=== PATIENT | male | born 1975 | race Caucasian/White ===

== ENCOUNTER 2021-11-17 15:15 | Emergency (ER) | payer OTHER ==
[2021-11-17 15:58] LABS: #Basophils 0.1 thou/uL (0.0-0.2); #Eosinphils 0.1 thou/uL (0.0-0.7); #Lymphocytes 1.8 thou/uL (1.20-3.40); #Monocytes 0.4 thou/uL (0.11-0.59); #Neutrophils 4.4 thou/uL (1.40-6.50); %Basophils 0.7 % (0.0-1.0); %Eosinophils 0.8 % (0.0-10.0); %Lymphocytes 27.1 % (21.0-51.0); %Monocytes 5.9 % (0.0-10.0); %Neutrophils 65.4 % (42.0-75.0); Hemoglobin 17.3 g/dL (14.0-18.0); Mean Corpuscular Hemoglobin 33.2 pg (27.0-31.0); Mean Corpuscular Volume 94.8 fL (78.0-98.0); Mean Platelet Volume 7.5 fL (7.4-10.4); Platelet Count 306 thou/uL (130-400); RBC Distribution Width 13.2 % (11.5-14.5); Red Blood Cell (RBC) Count 5.23 mill/uL (4.70-6.10); White Blood Cell (WBC) Count 6.8 thou/uL (4.8-10.8)
[2021-11-17 16:17] LABS: ALT (SGPT) 37 U/L (8-55); AST (SGOT) 20 U/L (5-34); Albumin 4.4 g/dL (3.5-5.0); Alkaline Phosphatase 65 U/L (40-110); Anion Gap 14 mmol/L (10-20); BUN (Urea Nitrogen) 16 mg/dL (8.9-20.6); Bilirubin, Total 1.1 mg/dL (0.2-1.2); Calc. Creatinine Clearance 0 mL/min (70-130); Calcium 9.7 mg/dL (7.8-10.44); Carbon Dioxide 24 mmol/L (22-29); Chloride 104 mmol/L (98-107); Estimated GFR 69; Globulin 3.5 g/dL (2.4-3.5); Glucose 90 mg/dL (70-105); Lipase 24 U/L (8-78); Potassium 4.3 mmol/L (3.5-5.1); Protein, Total 7.9 g/dL (6.0-8.3); Sodium 138 mmol/L (136-145)
== END 2021-11-17 17:13 | disposition home or self-care (01) ==
LOC: ERS 15:15
DX: R07.2 Precordial pain (principal); E78.5 Hyperlipidemia, unspecified; F17.220 Nicotine dependence, chewing tobacco, uncomplicated
CPT/HCPCS: 36415; 71045; 80053; 83690; 84484; 85025; 93005; 94760

== ENCOUNTER 2023-09-20 07:53 | Observation (INO) | payer BC, OTHER ==
[2023-09-20] MEDS ORDERED: Nitroglycerin 2% Ointment 1 INCH/1 GM Packet ONE (08:10)
[2023-09-20] MEDS ORDERED: Aspirin Chewable 81 MG TAB ONE (08:10)
[2023-09-20 08:25] LABS: #Basophils 0.03 10x3/uL (0.0-0.2); %Basophils 0.4 % (0.0-1.0); %Lymphocytes 29.9 % (21.0-51.0); %Monocytes 7.7 % (0.0-10.0); %Neutrophils 60.5 % (42.0-75.0); Hematocrit 48.5 % (42.0-52.0); Hemoglobin 17.4 g/dL (14.0-18.0); Mean Corpuscular HGB CONC 35.9 g/dL (32.0-36.0); Mean Corpuscular Hemoglobin 32.7 pg (27.0-31.0); Mean Corpuscular Volume 91.2 fL (78.0-98.0); Mean Platelet Volume 9.3 fL (7.4-10.4); Platelet Count 291 10x3/uL (130-400); RBC Distribution Width 13.2 % (11.5-14.5); Red Blood Cell (RBC) Count 5.32 mill/uL (4.70-6.10)
[2023-09-20 08:38] LABS: ALT (SGPT) 44 U/L (8-55); AST (SGOT) 29 U/L (5-34); Albumin 4.1 g/dL (3.5-5.0); Alkaline Phosphatase 67 U/L (40-110); Anion Gap 17 mmol/L (10-20); BUN (Urea Nitrogen) 15 mg/dL (8.9-20.6); Bilirubin, Total 0.8 mg/dL (0.2-1.2); Calc. Creatinine Clearance 0 mL/min (70-130); Calcium 9.4 mg/dL (7.8-10.44); Carbon Dioxide 25 mmol/L (22-29); Chloride 101 mmol/L (98-107); Estimated GFR 71; Globulin 3.4 g/dL (2.4-3.5); Glucose 89 mg/dL (70-105); Potassium 3.6 mmol/L (3.5-5.1); Protein, Total 7.5 g/dL (6.0-8.3); Sodium 139 mmol/L (136-145)
[2023-09-20 08:43] LABS: Troponin I Less than 0.010 ng/mL (< 0.028)
[2023-09-20] MEDS ORDERED: Nitroglycerin 0.4 MG TAB (25 Tab Bottle) SL PRN (12:10)
[2023-09-20] MEDS ORDERED: Ondansetron PF 4 MG/2 ML Vial IVP PRN (12:10)
[2023-09-20] MEDS ORDERED: Ondansetron ODT 4 MG TAB PO PRN (12:10)
[2023-09-20 18:22] VITALS: BMI 37.5
[2023-09-20] MEDS: Atorvastatin Calcium 20 MG TAB PO SCH (21:21)
[2023-09-20] MEDS: Acetaminophen 325 MG TAB PO PRN (21:26)
[2023-09-21 01:41] LABS: Troponin I Less than 0.010 ng/mL (< 0.028)
[2023-09-21 04:04] LABS: #Basophils 0.05 10x3/uL (0.0-0.2); %Basophils 0.7 % (0.0-1.0); %Eosinophils 1.8 % (0.0-10.0); %Lymphocytes 39.8 % (21.0-51.0); %Monocytes 8.1 % (0.0-10.0); %Neutrophils 49.5 % (42.0-75.0); Hematocrit 46.8 % (42.0-52.0); Mean Corpuscular HGB CONC 34.2 g/dL (32.0-36.0); Mean Corpuscular Hemoglobin 31.4 pg (27.0-31.0); Mean Corpuscular Volume 91.8 fL (78.0-98.0); Mean Platelet Volume 9.4 fL (7.4-10.4); Platelet Count 270 10x3/uL (130-400); RBC Distribution Width 13.2 % (11.5-14.5)
[2023-09-21 04:37] LABS: Anion Gap 14 mmol/L (10-20); BUN (Urea Nitrogen) 18 mg/dL (8.9-20.6); Calc. Creatinine Clearance 117 mL/min (70-130); Calcium 9.5 mg/dL (7.8-10.44); Carbon Dioxide 22 mmol/L (22-29); Chloride 107 mmol/L (98-107); Estimated GFR 75; Glucose 89 mg/dL (70-105); Magnesium 2.3 mg/dL (1.6-2.6); Sodium 139 mmol/L (136-145)
[2023-09-21] MEDS ORDERED: Calcium Carbonate 500 MG ChewTAB PO PRN (07:37)
[2023-09-21] MEDS: Aspirin 325 mg Enteric Coated Tablet PO SCH (10:03)
[2023-09-21] MEDS: Pantoprazole DR 40 MG TAB PO SCH (10:03)
[2023-09-21] MEDS ORDERED: Adenosine 90 mg (30 mL) VIAL ONE (10:27)
[2023-09-21 17:06] VITALS: BP 108/65; TEMP 97.6
== END 2023-09-21 17:47 | disposition home or self-care (01) ==
LOC: ERS 07:53 → ERHOLD 09:41 → 2SW 17:58
PROVIDERS: ADMIT Internal Medicine; ATTEND Family Medicine
DX: R07.89 Other chest pain (principal); E78.5 Hyperlipidemia, unspecified; K21.9 Gastro-esophageal reflux disease without esophagitis; G43.909 Migraine, unspecified, not intractable, without status migrainosus; F17.290 Nicotine dependence, other tobacco product, uncomplicated; Z88.6 Allergy status to analgesic agent; Z79.899 Other long term (current) drug therapy; Z90.49 Acquired absence of other specified parts of digestive tract
CPT/HCPCS: 36415; 71045; 78452; 80048; 80053; 83735; 84484; 85025; 93005; 93017; A9502; G0378; J0153

== ENCOUNTER 2024-01-20 06:26 | Observation (INO) | payer OTHER ==
[2024-01-20 07:30] LABS: #Basophils 0.03 10x3/uL (0.0-0.2); %Basophils 0.6 % (0.0-1.0); %Eosinophils 1.1 % (0.0-10.0); %Lymphocytes 31.2 % (21.0-51.0); %Neutrophils 56.7 % (42.0-75.0); Hematocrit 45.3 % (42.0-52.0); Hemoglobin 15.9 g/dL (14.0-18.0); Mean Corpuscular HGB CONC 35.1 g/dL (32.0-36.0); Mean Corpuscular Volume 91.1 fL (78.0-98.0); Mean Platelet Volume 9.2 fL (7.4-10.4); Platelet Count 267 10x3/uL (130-400); RBC Distribution Width 13.1 % (11.5-14.5); Red Blood Cell (RBC) Count 4.97 mill/uL (4.70-6.10)
[2024-01-20 07:32] LABS: ALT (SGPT) 28 U/L (8-55); AST (SGOT) 21 U/L (5-34); Alkaline Phosphatase 69 U/L (40-110); Anion Gap 10 mmol/L (10-20); BUN (Urea Nitrogen) 17 mg/dL (8.9-20.6); Bilirubin, Total 0.7 mg/dL (0.2-1.2); Calc. Creatinine Clearance 0 mL/min (70-130); Carbon Dioxide 23 mmol/L (22-29); Chloride 108 mmol/L (98-107); Estimated GFR 89; Globulin 2.9 g/dL (2.4-3.5); Glucose 87 mg/dL (70-105); Lipase 29 U/L (8-78); Potassium 3.8 mmol/L (3.5-5.1); Protein, Total 6.9 g/dL (6.0-8.3); Sodium 137 mmol/L (136-145)
[2024-01-20 07:37] LABS: Troponin I 0.022 ng/mL (< 0.028)
[2024-01-20] MEDS ORDERED: Mag-Al 1200 mg/1200 mg/30 ML UDCUP ONE (07:53)
[2024-01-20] MEDS ORDERED: Lidocaine Viscous Sol 2% 15 ml UD Cup ONE (07:53)
[2024-01-20] MEDS ORDERED: Aspirin Chewable 81 MG TAB ONE (09:52)
[2024-01-20] MEDS ORDERED: Acetaminophen 500 MG TAB PO PRN (13:41)
[2024-01-20] MEDS ORDERED: Ondansetron PF 4 MG/2 ML Vial IVP PRN (13:41)
[2024-01-20] MEDS ORDERED: Nitroglycerin 0.4 MG TAB (25 Tab Bottle) SL PRN (13:41)
[2024-01-20] MEDS ORDERED: traMADol HCl 50 MG TAB PO PRN (13:41)
[2024-01-20] MEDS ORDERED: Calcium Carbonate 500 MG ChewTAB PO PRN (13:41)
[2024-01-20] MEDS ORDERED: hydrALAZINE 20 MG/ML VIAL SLOW IVP PRN (13:41)
[2024-01-20] MEDS ORDERED: Ondansetron ODT 4 MG TAB PO PRN (13:41)
[2024-01-20 15:01] LABS: Troponin I 0.014 ng/mL (< 0.028)
[2024-01-20] MEDS ORDERED: Communication Order-Pharmacy FS SCH (17:00)
[2024-01-20] MEDS: Sodium Chloride 0.9% 1,000 ML IV SCH (17:15)
[2024-01-20] MEDS ORDERED: Communication Order-Pharmacy CATH FS SCH (18:15)
[2024-01-20 20:12] LABS: Troponin I Less than 0.010 ng/mL (< 0.028)
[2024-01-20] MEDS: Atorvastatin Calcium 20 MG TAB PO SCH (20:36)
[2024-01-21 08:13] LABS: Amphetamine Not Detected (NotDetected); Barbiturates Screen Not Detected (NotDetected); Benzodiazepine Screen Not Detected (NotDetected); Cocaine Metabolite Screen Not Detected (NotDetected); Methadone Not Detected (NotDetected); Methamphetamine Not Detected (NotDetected); Opiate Screen Not Detected (NotDetected); Oxycodone Screen Not Detected (NotDetected); Phencyclidine (PCP) Not Detected (NotDetected); THC/Cannabinoid Screen Not Detected (NotDetected); Tricyclic Screen Not Detected (NotDetected)
[2024-01-21 08:28] VITALS: TEMP 98.6
[2024-01-21] MEDS ORDERED: FLU (Fluarix Triv) TS24-25(6MOS UP)/PF 45 MCG/0.5 ML Syringe IM ONE (09:00)
[2024-01-21] MEDS: Aspirin Chewable 81 MG TAB PO SCH (09:21)
[2024-01-21] MEDS: Pantoprazole DR 40 MG TAB PO SCH (09:21)
[2024-01-21] MEDS ORDERED: Nitroglycerin 50 MG/250 ML BOT 250 ML ONE (10:39)
[2024-01-21] MEDS ORDERED: Heparin 10,000 UNITS/ 10 ML VIAL ONE ×2 (10:39→10:40)
[2024-01-21] MEDS ORDERED: Verapamil 5 MG/2 ML VIAL ONE (10:43)
[2024-01-21] MEDS ORDERED: Midazolam HCl 2 mg/2 ml Vial ONE (11:52)
[2024-01-21] MEDS ORDERED: fentaNYL 50 mcg/mL 1 mL Vial ONE (11:52)
[2024-01-21] MEDS ORDERED: Sodium Chloride 0.9% 200 ML IV PRN (12:27)
[2024-01-21] MEDS ORDERED: Acetaminophen/Codeine 30-300mg Tablet PO PRN (12:27)
[2024-01-21 15:53] VITALS: BMI 39.3
[2024-01-21 16:54] VITALS: BP 115/75
[2024-01-23] MEDS ORDERED: Iopamidol 370 76% 100 ML VIAL ONE (09:22)
== END 2024-01-21 16:54 | disposition home or self-care (01) ==
LOC: ERS 06:26 → ERHOLD 11:36 → UNDODISOB 18:58 → 2SE 19:20
PROVIDERS: ADMIT Family Medicine; ATTEND Hospitalist
DX: R07.9 Chest pain, unspecified (principal); K21.9 Gastro-esophageal reflux disease without esophagitis; E78.5 Hyperlipidemia, unspecified; K52.9 Noninfective gastroenteritis and colitis, unspecified; F17.200 Nicotine dependence, unspecified, uncomplicated; Z79.82 Long term (current) use of aspirin; Z79.899 Other long term (current) drug therapy
CPT/HCPCS: 36415; 71045; 80053; 80306; 83690; 84484; 85025; 93005; 93458; 99152; C1769; C1894; G0378; J1644; J2250; J3010; J7030